=== PATIENT | female | born 1985 | race Asian ===

== ENCOUNTER 2017-03-10 00:01 | Inpatient (IN) | payer SELFPAY ==
[~2017-03-10] VITALS: Ht 160 cm; Wt 77.6 kg
[2017-03-10] MEDS ORDERED: PROMETHAZINE 25 MG/ML VIAL IVP PRN (00:25)
[2017-03-10] MEDS ORDERED: OXYTOCIN 10 UNITS/ML VIAL IM SCH (00:25)
[2017-03-10] MEDS ORDERED: METHYLERGONOVINE 0.2 MG/ML AMP IM PRN ×2 (00:25→18:10)
[2017-03-10] MEDS ORDERED: CARBOPROST 250 MCG/ML AMP IM PRN (00:25)
[2017-03-10] MEDS ORDERED: OXYTOCIN 20 UNITS/LR PREMIX 1,000 ML IV PRN (00:25)
[2017-03-10] MEDS ORDERED: NALBUPHINE HYDROCHLORIDE 10 MG/ML VIAL IVP PRN (00:25)
[2017-03-10 00:48] LABS: BASOPHILS % (AUTO) 0.3 % (0.0-2.0); EOSINOPHILS # (AUTO) 0.2 K/uL (0-0.4); EOSINOPHILS % (AUTO) 1.8 % (0.0-4.0); HEMATOCRIT 36.9 % (36-48); HEMOGLOBIN 11.8 g/dL (12.0-16.0); LYMPHOCYTES # (AUTO) 1.3 K/uL (2.5-16.5); LYMPHOCYTES % (AUTO) 14.9 % (20.5-51.1); MEAN CORPUSCULAR HEMOGLOBIN 29 pg (27-31); MEAN CORPUSCULAR HGB CONC 32 g/dL (33-37); MEAN CORPUSCULAR VOLUME 91 fL (80-94); MONOCYTES # (AUTO) 0.6 K/uL (0.8-1.0); MONOCYTES % (AUTO) 6.5 % (1.7-9.3); NEUTROPHILS # (AUTO) 6.8 K/uL (1.8-7.7); NEUTROPHILS % (AUTO) 76.5 % (42.2-75.2); PLATELET COUNT (AUTO) 210 K/uL (140-450); RED BLOOD CELL COUNT(AUTO) 4.03 MIL/uL (4.20-5.40); RED CELL DISTRIBUTION WIDTH 12.4 % (11.6-13.7); WHITE BLOOD COUNT (AUTO) 8.9 K/uL (4.8-10.8)
[2017-03-10 00:49] LABS: APPEARANCE,URINE CLEAR (CLEAR); BILIRUBIN,URINE NEGATIVE (NEGATIVE); BLOOD, URINE TRACE-I (NEGATIVE); COLOR,URINE YELLOW (YELLOW); LEUKOCYTE ESTERASE ,URINE NEGATIVE (NEGATIVE); NITRITE, URINE NEGATIVE (NEGATIVE); PROTEIN,URINE NEGATIVE (NEGATIVE); UGLUCOSE NEGATIVE (NEGATIVE); UROBILINOGEN,URINE 0.2 EU/dL (0.2 - 1)
[2017-03-10 01:21] LABS: HIV RAPID SCREEN NON-REACTIVE (NON REACTIV)
[2017-03-10] MEDS: LACTATED RINGERS 1,000 ML IV SCH ×3 (02:00→13:20)
[2017-03-10] MEDS ORDERED: MISOPROSTOL 25 MCG TAB ONE ×3 (02:09→10:07)
[2017-03-10 02:39] LABS: BACTERIA,URINE FEW /HPF (None Seen); MUCUS,URINE 2+ /LPF (None Seen); RBC,URINE 0-5 (RARE) /HPF (0-5); SQUAMOUS EPITHELIAL CELL,UR 0-3 (FEW) /LPF (0-3 (FEW)); WBC,URINE 0-5 (RARE) /HPF (0-5)
[2017-03-10] MEDS: MISOPROSTOL 25 MCG TAB VG PRN ×2 (02:44→10:18)
[2017-03-10 06:31] LABS: RAPID PLASMA REAGIN NON-REACTIVE (Non Reactiv)
--- NOTE | 2017-03-10 08:01 | NUR ---
PATIENT HAS BEEN SCREENED AND CATEGORIZED LOW NUTRITION RISK. PATIENT WILL BE SEEN WITHIN 7 DAYS OF ADMISSION. 03/16/[address]
[2017-03-10] MEDS ORDERED: TERBUTALINE 1 MG/ML VIAL SUBQ ONE (12:25)
[2017-03-10] MEDS ORDERED: TERBUTALINE 1 MG/ML VIAL SUBQ SCH (12:29)
[2017-03-10] MEDS ORDERED: NALBUPHINE HYDROCHLORIDE 10 MG/ML VIAL ONE (14:25)
[2017-03-10] MEDS ORDERED: PROMETHAZINE 25 MG/ML VIAL ONE (14:26)
[2017-03-10] MEDS ORDERED: CLINDAMYCIN 900 MG in DEXTROSE 5% 100 ML IV SCH (16:41)
[2017-03-10] MEDS ORDERED: TRIAMCINOLONE 40 MG/ML 5ML VIAL ONE (17:01)
[2017-03-10] MEDS ORDERED: OXYTOCIN 10 UNITS/ML VIAL ONE ×2 (17:02→17:25)
[2017-03-10] MEDS ORDERED: METHYLERGONOVINE 0.2 MG/ML AMP ONE (17:03)
[2017-03-10] MEDS ORDERED: CITRIC ACID/SODIUM CITRATE 30 ML UDC ONE (17:24)
[2017-03-10] MEDS ORDERED: BUPIVACAINE-MPF 0.75% 10 ML VIAL INJ ONE (17:25)
[2017-03-10] MEDS ORDERED: ONDANSETRON 4 MG/2 ML VIAL ONE (17:25)
[2017-03-10] MEDS ORDERED: ePHEDrine 50 MG/ML VIAL ONE (17:25)
[2017-03-10] MEDS ORDERED: MIDAZOLAM 2 MG/2 ML VIAL ONE (17:31)
[2017-03-10] MEDS ORDERED: fentaNYL 0.05 MG/ML VIAL ONE (17:31)
[2017-03-10] MEDS ORDERED: KETAMINE 500 MG/5 ML VIAL ONE (17:31)
[2017-03-10] MEDS ORDERED: MORPHINE PRES FREE 10 MG/10 ML AMP IV ONE (17:32)
[2017-03-10] MEDS ORDERED: KETOROLAC 30 MG/ML VIAL IVP PRN (18:05)
[2017-03-10] MEDS ORDERED: ONDANSETRON 4 MG/2 ML VIAL IVP PRN (18:05)
[2017-03-10] MEDS ORDERED: diphenhydrAMINE 50 MG/ML VIAL IVP PRN (18:05)
[2017-03-10] MEDS ORDERED: SIMETHICONE 80 MG TAB.CHEW PO PRN (18:10)
[2017-03-10] MEDS ORDERED: MEASLES, MUMPS, AND RUBELLA 1 VIAL SQVAC PRN (18:10)
[2017-03-10] MEDS ORDERED: TRIMETHOBENZAMIDE 200 MG/2 ML SYR IM PRN (18:10)
[2017-03-10] MEDS ORDERED: TEMAZEPAM 15 MG CAP PO PRN (18:10)
[2017-03-10] MEDS ORDERED: oxyCODONE/APAP 5/325 MG 1 TAB TAB PO PRN (18:10)
[2017-03-10] MEDS ORDERED: HYDROcodone/APAP 5/325 MG 1 TAB TAB PO PRN (18:10)
[2017-03-10] MEDS ORDERED: OXYTOCIN 20 UNITS/LR PREMIX 1,000 ML IV ONE (19:28)
[2017-03-10] MEDS: DOCUSATE SOD/SENNA 50/8.6 MG 1 TAB PO SCH (21:00)
[2017-03-10] MEDS: OXYTOCIN 20 UNITS/LR PREMIX 1,000 ML IV SCH (21:03)
[2017-03-11] MEDS: OXYTOCIN 20 UNITS/LR PREMIX 1,000 ML IV SCH ×2 (05:31→13:22)
[2017-03-11 06:32] LABS: BASOPHILS % (AUTO) 0.1 % (0.0-2.0); EOSINOPHILS # (AUTO) 0.2 K/uL (0-0.4); EOSINOPHILS % (AUTO) 1.6 % (0.0-4.0); HEMATOCRIT 32.6 % (36-48); HEMOGLOBIN 10.8 g/dL (12.0-16.0); LYMPHOCYTES # (AUTO) 0.8 K/uL (2.5-16.5); LYMPHOCYTES % (AUTO) 5.7 % (20.5-51.1); MEAN CORPUSCULAR HEMOGLOBIN 30 pg (27-31); MEAN CORPUSCULAR HGB CONC 33 g/dL (33-37); MEAN CORPUSCULAR VOLUME 90 fL (80-94); MONOCYTES # (AUTO) 0.7 K/uL (0.8-1.0); NEUTROPHILS # (AUTO) 12.8 K/uL (1.8-7.7); NEUTROPHILS % (AUTO) 87.6 % (42.2-75.2); PLATELET COUNT (AUTO) 160 K/uL (140-450); RED BLOOD CELL COUNT(AUTO) 3.61 MIL/uL (4.20-5.40); RED CELL DISTRIBUTION WIDTH 12.5 % (11.6-13.7)
[2017-03-11 07:01] LABS: WHITE BLOOD COUNT (AUTO) 14.5 K/uL (4.8-10.8)
--- NOTE | 2017-03-11 11:31 | NUR ---
IS INSTRUCT GIVEN KARYN HUTTON PHONE ID NUMBER [id number]
[2017-03-11] MEDS: IBUPROFEN 800 MG TAB PO PRN (19:54)
[2017-03-11] MEDS: DOCUSATE SOD/SENNA 50/8.6 MG 1 TAB PO SCH (21:04)
[2017-03-12] MEDS: IBUPROFEN 800 MG TAB PO PRN (15:34)
== END 2017-03-12 18:05 | disposition home or self-care (01) | DRG 766 ==
LOC: MLD 00:01 → MFCC 18:47
PROVIDERS: ADMIT Obstetrics & Gynecology; ATTEND Obstetrics & Gynecology
PROC: 10D00Z1 Extraction of Products of Conception, Low, Open Approach (ICD-10-PCS; principal; 2017-03-10 17:00)
DX: O33.9 Maternal care for disproportion, unspecified (principal); O62.2 Other uterine inertia; O32.8XX0 Maternal care for other malpresentation of fetus, not applicable or unspecified; Z37.0 Single live birth; Z88.0 Allergy status to penicillin; Z3A.39 39 weeks gestation of pregnancy; Z82.49 Family history of ischemic heart disease and other diseases of the circulatory system; Z28.21 Immunization not carried out because of patient refusal
CPT/HCPCS: 36415; 59200; 81001; 85025; 86592; 86886; 86900; 86901; J0690; J1885; J2210; J2250; J2270; J2300; J2405; J2550; J2590; J3010; J3105; J3301; J3490; J7060; J7120